=== PATIENT | male | born 1970 | race African-American/Black ===

== ENCOUNTER 2019-02-02 20:00 | Emergency (ER) | payer SELFPAY ==
[2019-02-02] MEDS ORDERED: predniSONE 20 MG TAB ONE ×2 (21:05)
== END 2019-02-02 21:44 | disposition home or self-care (01) ==
LOC: SCSER 20:00
DX: J45.901 Unspecified asthma with (acute) exacerbation (principal)
CPT/HCPCS: 94640; J7512; J7620

== ENCOUNTER 2019-03-09 22:28 | Emergency (ER) | payer SELFPAY ==
[2019-03-09] MEDS ORDERED: predniSONE 20 MG TAB ONE (22:50)
[2019-03-09] MEDS ORDERED: Sodium Chloride For Inhalation 0.9% 3 ML NEB ONE (22:53)
[2019-03-09] MEDS ORDERED: Albuterol Sulfate 2.5 mg/0.5 ml Neb ONE ×2 (22:53)
== END 2019-03-09 23:49 | disposition home or self-care (01) ==
LOC: SCSER 22:28
DX: J45.901 Unspecified asthma with (acute) exacerbation (principal); Z79.51 Long term (current) use of inhaled steroids
CPT/HCPCS: 94640; J7512; J7611

== ENCOUNTER 2024-03-15 15:41 | Emergency (ER) | payer OTHER, SELFPAY | END 2024-03-15 18:20 | disposition home or self-care (01) | LOC: ERS 15:41 | DX: S70.02XA Contusion of left hip, initial encounter (principal); J45.909 Unspecified asthma, uncomplicated; V85.5XXA Driver of special construction vehicle injured in nontraffic accident, initial encounter; Z79.899 Other long term (current) drug therapy | CPT/HCPCS: 72170; 99284 ==